=== PATIENT | female | born 1985 | race Two or more races ===

== ENCOUNTER 2023-07-31 01:06 | Emergency (ER) | payer MEDICAID, OTHER ==
[~2023-07-31] VITALS: Ht 157.5 cm; Wt 59.0 kg
[~2023-07-31 01:06] MED LIST: ACET-66
[2023-07-31 01:08] VITALS: TEMP 98.2
[2023-07-31 01:48] LABS: APPEARANCE,URINE CLEAR (CLEAR); BILIRUBIN,URINE NEGATIVE (NEGATIVE); COLOR,URINE COLORLESS (YELLOW); GLUCOSE, URINE (UA) NEGATIVE (NEGATIVE); KETONES,URINE NEGATIVE (NEGATIVE); LEUKOCYTE ESTERASE ,URINE LARGE (NEGATIVE); NITRATE,URINE NEGATIVE (NEGATIVE); OCCULT BLOOD,URINE LARGE (NEGATIVE); PROTEIN,URINE 30-70 mg/dL (NEGATIVE); SPECIFIC GRAVITIY, URINE 1.006 (1.003-1.030); UROBILINOGEN,URINE <=1.0 mg/dL (<=1.0)
[2023-07-31 02:22] LABS: BACTERIA,URINE Moderate /HPF (None Seen); SQUAMOUS EPITHELIAL CELL,UR Few /LPF (None Seen); WBC,URINE 51-100 /HPF (0-5)
[2023-07-31] MEDS ORDERED: CEPH-558 PO (03:00)
[2023-07-31] MEDS: LIDOCAINE/PF 1% 2 ML VIAL IM ONE (03:29)
[2023-07-31] MEDS: PHENAZOPYRIDINE HCL 100 MG TABLET PO ONE (03:30)
[2023-07-31] MEDS: CefTRIAXone SODIUM 1 GM/VIAL IM ONE (03:30)
[2023-07-31 04:09] VITALS: BP 110/62; PULSE 98; RESP 16
== END 2023-07-31 04:11 | disposition home or self-care (01) ==
LOC: EMS 01:06
DX: N39.0 Urinary tract infection, site not specified (principal); Z98.51 Tubal ligation status
CPT/HCPCS: 99283; 81001; 87086; 87186; 96372; J0696; J3490